=== PATIENT | female | born 1945 | race Caucasian/White ===

== ENCOUNTER 2018-03-17 08:10 | Day surgery (SDC) | payer MEDICARE, BC, OTHER ==
[~2018-03-17 08:10] MED LIST: ACETAMINOPHEN 325 MG TAB PO; PHENYLEPHRINE HCL 10 % OPHTH. SOL 5ML OD; PROPARACAINE 0.5% OPHTH SOL 15ML OD
[2018-03-17] MEDS ORDERED: TROPICAMIDE 1% OPHTH SOLN 2ML As Ordered (08:27)
[2018-03-17] MEDS ORDERED: OFLOXACIN 0.3 % (OCUFLOX) OPTH SOL 5ML As Ordered (08:27)
[2018-03-17] MEDS ORDERED: CYCLOPENTOLATE 2% OPHTH SOLN 2ML BTL As Ordered (08:27)
[2018-03-17] MEDS ORDERED: PHENYLEPHRINE 2.5% OPHTH SOL 2ML As Ordered (08:28)
[2018-03-17] MEDS: CYCLOPENTOLATE 2% OPHTH SOLN 2ML BTL OD (08:58)
[2018-03-17] MEDS: OFLOXACIN 0.3 % (OCUFLOX) OPTH SOL 5ML OD (08:58)
[2018-03-17] MEDS: PHENYLEPHRINE 2.5% OPHTH SOL 2ML OD (08:58)
[2018-03-17] MEDS: LIDOCAINE 3.5 % 1ML OPHTH TOPICAL GEL OU (08:58)
[2018-03-17] MEDS: TROPICAMIDE 1% OPHTH SOLN 2ML OD (08:58)
[2018-03-17 09:06] LABS: BEDSIDE GLUCOSE 157 MG/DL (83-110)
[2018-03-17] MEDS ORDERED: MIDAZOLAM INJ 2 MG/2 ML VIAL (J2250) As Ordered (10:28)
[2018-03-17] MEDS ORDERED: fentaNYL 100 MCG/2 ML INJECTION (J3010) As Ordered (10:29)
[2018-03-17] MEDS: POVIDONE-IODINE 5% OPHTH PREP SOL 30ML As Ordered (10:54)
[2018-03-17] MEDS: LIDOCAINE 1% SDV 5 ML VIAL As Ordered (10:59)
[2018-03-17] MEDS: HEALON DUET (HEALON 10MG/ML 0.55ML & HEALON ENDOCOAT 30MG/ML 0.85ML) As Ordered (10:59)
[2018-03-17] MEDS: CEFUROXIME 1MG/0.1ML INTRACAMERAL INJ As Ordered (10:59)
[2018-03-17] MEDS: BALANCED SALT IRRIGATION SOLUTION 500ML BAG (FOR OR EYE MACHINE) As Ordered (11:00)
[2018-03-17] MEDS: ACETYLCHOLINE OPHTH SOLN 1% 2ML (MIOCHOL-E) As Ordered ×2 (11:08→11:10)
[2018-03-17] MEDS: AcetaZOLAMIDE 500 MG ER CAP PO (11:41)
[2018-03-17] MEDS: KETOROLAC 0.5% OPHTH SOLN OD (11:42)
[2018-03-17] MEDS ORDERED: TRIMETHOBENZAMIDE 300 MG CAP PO (11:45)
== END 2018-03-17 11:55 | disposition home or self-care (01) ==
LOC: M SDC 08:10
DX: H25.11 Age-related nuclear cataract, right eye (principal); I48.91 Unspecified atrial fibrillation; E78.5 Hyperlipidemia, unspecified; E11.9 Type 2 diabetes mellitus without complications; E03.9 Hypothyroidism, unspecified; Z79.02 Long term (current) use of antithrombotics/antiplatelets; Z79.899 Other long term (current) drug therapy
CPT/HCPCS: 66984